=== PATIENT | male | born 1965 | race Caucasian/White ===

== ENCOUNTER 2017-06-27 02:04 | Emergency (ER) | payer BC ==
[2017-06-27] MEDS ORDERED: diphenhydrAMINE 50 MG/ML SDV IVPUSH ONE (02:39)
[2017-06-27] MEDS ORDERED: Sodium Chloride 0.9% 10 ML Syringe FLUSH PRN (02:39)
[2017-06-27] MEDS ORDERED: Prochlorperazine 10 MG/2 ML SDV IVPUSH ONE (02:39)
[2017-06-27] MEDS ORDERED: LORazepam 2 MG/ML MDV IVPUSH ONE (02:39)
--- NOTE | 2017-06-27 02:44 | EDM.PDOC ---
ED HPI GENERAL MEDICAL PROBLEM - General Chief Complaint: Headache Stated Complaint: MIGRAINE Time Seen by Provider: 06/27/17 02:34 Source of Information: Reports: Patient, RN Notes Reviewed History Limitations: Reports: No Limitations - History of Present Illness INITIAL COMMENTS - FREE TEXT/NARRATIVE: 51-year-old gentleman presents emergency department day complaint of migraine headache he states is been going on for several days usually he is able to control this with Imitrex however it did not work today thinks the trigger may be medications of Flagyl and ciprofloxacin he is scheduled for a colonoscopy as well as abscess and drainage of a what he described as an abscess near his: The next 24 hours. He has no fevers nausea vomiting photophobia migraine headache Pain Score (Numeric/FACES): 10 - Related Data Allergies Allergy/AdvReac Type Severity Reaction Status Date / Time No Known Allergies Allergy Verified 06/27/17 02:14 Home Meds: Home Meds ALPRAZolam [Alprazolam] 0.25 mg PO BID 06/27/17 [History] Omeprazole [Omeprazole] 40 mg PO DAILY 06/27/17 [History] SUMAtriptan Succinate [Imitrex] 100 mg PO BID PRN 06/27/17 [History] Past Medical History Gastrointestinal History: Reports: Diverticulosis, Other (See Below) Other Gastrointestinal History: abscess formed from diverticulitis Musculoskeletal History: Reports: Amputation, Fracture, Other (See Below) Other Musculoskeletal History: Left arm fracture Neurological History: Reports: Concussion, Migraines Psychiatric History: Reports: Anxiety - Infectious Disease History Infectious Disease History: Reports: Chicken Pox, MRSA, Other (See Below) Other Infectious Disease History: MRSA right leg - Past Surgical History GI Surgical History: Reports: Other (See Below) Other GI Surgeries/Procedures: abcess drained April 14 2017, 11cm Musculoskeletal Surgical History: Reports: Amputation, Shoulder Surgery, Other ( See Below) Other Musculoskeletal Surgeries/Procedures:: right BK amputation, prothesis Social & Family History - Tobacco Use Smoking Status *Q: Never Smoker - Recreational Drug Use Recreational Drug Use: No ED ROS GENERAL - Review of Systems Review Of Systems: See Below Constitutional: Denies: Fever, Chills HEENT: Reports: Eye Pain Respiratory: Reports: No Symptoms Cardiovascular: Reports: No Symptoms GI/Abdominal: Reports: Nausea. Denies: Abdominal Pain, Vomiting : Reports: No Symptoms Neurological: Reports: Headache - Physical Exam Exam: See Below Exam Limited By: No Limitations General Appearance: Alert, WD/WN, No Apparent Distress Eye Exam: Bilateral Eye: Normal Fundi, Normal Inspection Neck: Normal Inspection, Supple, Non-Tender, Full Range of Motion Respiratory/Chest: No Respiratory Distress, Lungs Clear, Normal Breath Sounds, No Accessory Muscle Use, Chest Non-Tender Cardiovascular: Regular Rate, Rhythm, No Murmur Course - Vital Signs Last Recorded V/S: Last Vital Signs Temp 96.7 F 06/27/17 02:27 Pulse 82 06/27/17 02:27 Resp 18 06/27/17 02:27 BP 136/87 06/27/17 02:27 Pulse Ox 91 L 06/27/17 02:27 - Orders/Labs/Meds Orders: Active Orders 24 hr Category Date Time Status Peripheral IV Care [RC] . DIRECTED Care 06/27/17 02:40 Active Magnesium Sulfate/Water [Magnesium Sulfate 2 GM in Med 06/27/17 04:42 Ordered Water 50 ML] 2 gm Premix Bag 1 bag IV ONETIME Sodium Chloride 0.9% [Normal Saline] 1,000 ml Med 06/27/17 02:45 Active IV ASDIRECTED Sodium Chloride 0.9% [Saline Flush] Med 06/27/17 02:39 Active 10 ml FLUSH ASDIRECTED PRN Valproate Sodium [Depacon] 500 mg Med 06/27/17 04:42 Ordered Sodium Chloride 0.9% [Normal Saline] 50 ml IV ONETIME Peripheral IV Insertion Adult [OM.PC] Urgent Oth 06/27/17 02:39 Ordered Medication Orders Sodium Chloride (Normal Saline) 1,000 mls @ 500 mls/hr IV ASDIRECTED JOHN Last Admin: 06/27/17 02:55 Dose: 500 mls/hr Magnesium Sulfate 2 gm/ Premix 50 mls @ 12.5 mls/hr IV ONETIME ONE Stop: 06/27/17 08:41 Valproic Acid 500 mg/ Sodium (Chloride) 55 mls @ 50 mls/hr IV ONETIME ONE Stop: 06/27/17 05:41 Sodium Chloride (Saline Flush) 10 ml FLUSH ASDIRECTED PRN PRN Reason: Keep Vein Open Last Admin: 06/27/17 02:58 Dose: 10 ml Meds: Medications Generic Name Dose Route Start Last Admin Trade Name Freq PRN Reason Stop Dose Admin Sodium Chloride 1,000 mls @ 500 mls/hr 06/27/17 02:45 06/27/17 02:55 Normal Saline IV 500 mls/hr ASDIRECTED JOHN Administration Magnesium Sulfate 2 gm/ Premix 50 mls @ 12.5 mls/hr 06/27/17 04:42 IV 06/27/17 08:41 ONETIME ONE Valproic Acid 500 mg/ Sodium 55 mls @ 50 mls/hr 06/27/17 04:42 Chloride IV 06/27/17 05:41 ONETIME ONE Sodium Chloride 10 ml 06/27/17 02:39 06/27/17 02:58 Saline Flush FLUSH 10 ml ASDIRECTED PRN Administration Keep Vein Open Discontinued Medications Generic Name Dose Route Start Last Admin Trade Name Freq PRN Reason Stop Dose Admin Dexamethasone 4 mg 06/27/17 03:39 06/27/17 03:51 Dexamethasone IVPUSH 06/27/17 03:40 4 mg ONETIME ONE Administration Diphenhydramine HCl 25 mg 06/27/17 02:39 06/27/17 02:59 Benadryl IVPUSH 06/27/17 02:40 25 mg ONETIME ONE Administration Haloperidol Lactate 5 mg 06/27/17 03:39 06/27/17 03:51 Haldol IVPUSH 06/27/17 03:40 5 mg ONETIME ONE Administration Lorazepam 1 mg 06/27/17 02:39 06/27/17 03:02 Ativan IVPUSH 06/27/17 02:40 1 mg ONETIME ONE Administration Prochlorperazine Edisylate 5 mg 06/27/17 02:39 06/27/17 02:56 Compazine IVPUSH 06/27/17 02:40 5 mg ONETIME ONE Administration Departure - Departure Time of Disposition: 05:10 Disposition: Home, Self-Care 01 Condition: Fair Clinical Impression: Migraine - Discharge Information Referrals: PCP,None [Primary Care Provider] - Forms: ED Department Discharge Additional Instructions: Please followup with your primary care provider in 3-5 days if not better, please call return to the emergency department with worsening of symptoms. - My Orders Last 24 Hours: My Active Orders 06/27/17 02:39 Sodium Chloride 0.9% [Saline Flush] 10 ml FLUSH ASDIRECTED PRN Peripheral IV Insertion Adult [OM.PC] Urgent 06/27/17 02:40 Peripheral IV Care [RC] . DIRECTED 06/27/17 02:45 Sodium Chloride 0.9% [Normal Saline] 1,000 ml IV ASDIRECTED 06/27/17 04:42 Magnesium Sulfate/Water [Magnesium Sulfate 2 GM in Water 50 ML] 2 gm Premix Bag 1 bag IV ONETIME Valproate Sodium [Depacon] 500 mg Sodium Chloride 0.9% [Normal Saline] 50 ml IV ONETIME - Assessment/Plan Last 24 Hours: My Active Orders 06/27/17 02:39 Sodium Chloride 0.9% [Saline Flush] 10 ml FLUSH ASDIRECTED PRN Peripheral IV Insertion Adult [OM.PC] Urgent 06/27/17 02:40 Peripheral IV Care [RC] . DIRECTED 06/27/17 02:45 Sodium Chloride 0.9% [Normal Saline] 1,000 ml IV ASDIRECTED 06/27/17 04:42 Magnesium Sulfate/Water [Magnesium Sulfate 2 GM in Water 50 ML] 2 gm Premix Bag 1 bag IV ONETIME Valproate Sodium [Depacon] 500 mg Sodium Chloride 0.9% [Normal Saline] 50 ml IV ONETIME Plan: Assessment Acuity = acute Site and laterality = migraine headache Etiology = unclear etiology Manifestations = none Location of injury = Home Lab values = none Plan He had improvement with Compazine, Haldol, Benadryl, dexamethasone plan is to discharge home follow-up primary care as needed This note was dictated using [employer] voice recognition software please call with any questions on syntax or supa.
[2017-06-27] MEDS ORDERED: Sodium Chloride 0.9% 1,000 ML IV SCH (02:45)
[2017-06-27] MEDS ORDERED: Dexamethasone 4 MG/ML SDV IVPUSH ONE (03:39)
[2017-06-27] MEDS ORDERED: Haloperidol Lactate 5 MG/ML SDV IVPUSH ONE (03:39)
[2017-06-27] MEDS ORDERED: Magnesium Sulfate/Water 2 GM in Premix Bag 1 BAG IV ONE (04:42)
[2017-06-27] MEDS ORDERED: Magnesium Sulfate/Water 0 ML ONE (05:00)
[2017-06-27] MEDS ORDERED: SUMAtriptan 50 MG Tab PO ONE (05:14)
== END 2017-06-27 05:31 | disposition home or self-care (01) ==
LOC: JP.ED 02:04
DX: G43.909 Migraine, unspecified, not intractable, without status migrainosus (principal); Z79.899 Other long term (current) drug therapy
CPT/HCPCS: 96361; 96374; 96375; 99284; A9270; J0780; J1100; J1200; J1630; J2060; J7040; J7050

== ENCOUNTER 2019-02-24 17:44 | Emergency (ER) | payer BC ==
[2019-02-24] MEDS ORDERED: methylPREDNISolone Sodium Succinate 125 MG/2 ML SDV IM ONE (18:41)
[2019-02-24] MEDS ORDERED: HYDROmorphone 1 MG/ML Syringe IM ONE (18:41)
--- NOTE | 2019-02-24 18:48 | EDM.PDOC ---
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 He is scheduled for some type of nerve ablation next Tuesday. When he gets headaches he typically takes Excedrin migraine which is beneficial, but he was informed not to take any aspirin products prior to his procedure. He developed a right-sided headache 12 hours ago it is persistent. No nausea or vomiting, no visual disturbance. Onset: Sudden Duration: Hour(s): (12 hours) Location: Reports: Head (Right-sided temporal, parietal pain) Quality: Reports: Sharp, Stabbing Associated Symptoms: Reports: No Other Symptoms 10 Pain Score (Numeric/FACES): 1 - Related Data Allergies Allergy/AdvReac Type Severity Reaction Status Date / Time No Known Allergies Allergy Verified 02/24/19 18:17 Home Meds: Home Meds ALPRAZolam [Alprazolam] 0.25 mg PO BID 06/27/17 [History] Omeprazole 40 mg PO DAILY 06/27/17 [History] Acetaminophen/Caffeine [Excedrin Tension Headache] 1 tab PO Q6H PRN 03/25/18 [ History] Past Medical History Gastrointestinal History: Reports: Diverticulosis, Other (See Below) Other Gastrointestinal History: abscess formed from diverticulitis Musculoskeletal History: Reports: Amputation, Fracture, Other (See Below) Other Musculoskeletal History: Left arm fracture Neurological History: Reports: Concussion, Migraines Psychiatric History: Reports: Anxiety - Infectious Disease History Infectious Disease History: Reports: Chicken Pox, MRSA, Other (See Below) Other Infectious Disease History: MRSA right leg - Past Surgical History GI Surgical History: Reports: Other (See Below) Other GI Surgeries/Procedures: abcess drained April 14 2017, 11cm Musculoskeletal Surgical History: Reports: Amputation, Shoulder Surgery, Other ( See Below) Other Musculoskeletal Surgeries/Procedures:: right BK amputation, prothesis Social & Family History - Tobacco Use Smoking Status *Q: Never Smoker - Caffeine Use Caffeine Use: Reports: Coffee ED ROS GENERAL - Review of Systems Review Of Systems: See Below Constitutional: Denies: Fever, Chills HEENT: Denies: Vision Change Respiratory: Denies: Shortness of Breath GI/Abdominal: Denies: Nausea, Vomiting Skin: Denies: Rash Neurological: Reports: Headache - Physical Exam Exam: See Below Exam Limited By: No Limitations General Appearance: Alert, Mild Distress (Fairly uncomfortable) Eye Exam: Bilateral Eye: Normal Inspection Head Exam: Other (Patient has palpation tenderness to the temporal and parietal scalp on the right side.) Neck: Supple Respiratory/Chest: No Respiratory Distress, Lungs Clear Cardiovascular: Regular Rate, Rhythm Neuro Exam (Abbreviated): Alert, Oriented, No Motor/Sensory Deficits Course - Vital Signs Last Recorded V/S: Last Vital Signs Temp 97.5 F 02/24/19 18:24 Pulse 70 02/24/19 18:24 Resp 14 02/24/19 18:24 BP 113/81 02/24/19 18:24 Pulse Ox 94 L 02/24/19 18:24 - Orders/Labs/Meds Meds: Medications Discontinued Medications Generic Name Dose Route Start Last Admin Trade Name Sandra PRN Reason Stop Dose Admin Hydromorphone HCl 1 mg 02/24/19 18:41 02/24/19 18:56 Dilaudid IM 02/24/19 18:42 1 mg ONETIME ONE Administration Methylprednisolone Sodium Succinate 125 mg 02/24/19 18:41 02/24/19 18:56 Solu-Medrol IM 02/24/19 18:42 125 mg ONETIME ONE Administration - Re-Assessments/Exams Free Text/Narrative Re-Assessment/Exam: 02/24/19 18:45 This headache presents more of a neuropathic source than migraine source. He was given 1 mg of IM Dilaudid and 125 mg of IM Solu-Medrol. He is going to rest tonight, return if not improving satisfactorily otherwise keep his appointment for his procedure on Tuesday as scheduled. 02/24/19 19:20 Patient felt much better after the injections, his headache had actually resolved. Departure - Departure Time of Disposition: 19:42 Disposition: Home, Self-Care 01 Clinical Impression: Temporal headache - Discharge Information Instructions: Neuropathic Pain Referrals: PCP,None [Primary Care Provider] - Forms: ED Department Discharge Care Plan Goals: Rest tonight, return if worsening prior to your procedure. Otherwise keep your appointment on Tuesday as scheduled.
== END 2019-02-24 19:40 | disposition home or self-care (01) ==
LOC: JP.ED 17:44
DX: R51 Headache (principal); F41.9 Anxiety disorder, unspecified; Z79.899 Other long term (current) drug therapy
CPT/HCPCS: 96372; 99283; J1170; J2930

== ENCOUNTER 2020-02-29 14:33 | Emergency (ER) | payer BC ==
--- NOTE | 2020-02-29 15:24 | EDM.PDOC ---
<Melania Mirza M - Last Filed: 02/29/20 15:17> ED HPI GENERAL MEDICAL PROBLEM - General Chief Complaint: General Stated Complaint: COVID SYMPTOMS Time Seen by Provider: 02/29/20 15:17 Source of Information: Reports: Patient, RN, RN Notes Reviewed History Limitations: Reports: No Limitations - History of Present Illness INITIAL COMMENTS - FREE TEXT/NARRATIVE: Pt here for COVID testing after many hours of trying to have it done at drive through or walk in. Pt feels symptomatic with aches, fatigue, nausea, weakness, and overall low energy. Pt denies SOB, fever, chills, night sweats, or pain. - Related Data Allergies Allergy/AdvReac Type Severity Reaction Status Date / Time No Known Allergies Allergy Verified 02/29/20 14:47 Home Meds: Home Meds ALPRAZolam [Alprazolam] 0.25 mg PO BID 06/27/17 [History] Omeprazole 40 mg PO DAILY 06/27/17 [History] Acetaminophen/Caffeine [Excedrin Tension Headache] 1 tab PO Q6H PRN 03/25/18 [History] Celecoxib [CeleBREX] 200 mg PO BID 09/19/19 [History] Pregabalin [Lyrica] 75 mg PO TID 09/19/19 [History] FLUoxetine HCl [Prozac] 20 mg PO DAILY 01/30/20 [History] Past Medical History Gastrointestinal History: Reports: Diverticulosis, Other (See Below) Other Gastrointestinal History: abscess formed from diverticulitis Musculoskeletal History: Reports: Amputation, Fracture, Other (See Below) Other Musculoskeletal History: Left arm fracture Neurological History: Reports: Concussion, Migraines Psychiatric History: Reports: Anxiety - Infectious Disease History Infectious Disease History: Reports: Chicken Pox, MRSA, Other (See Below) Other Infectious Disease History: MRSA right leg - Past Surgical History GI Surgical History: Reports: Other (See Below) Other GI Surgeries/Procedures: abcess drained April 14 2017, 11cm Musculoskeletal Surgical History: Reports: Amputation, Shoulder Surgery, Other (See Below) Other Musculoskeletal Surgeries/Procedures:: right BK amputation, prothesis Social & Family History - Tobacco Use Tobacco Use Status *Q: Never Tobacco User - Caffeine Use Caffeine Use: Reports: Coffee ED ROS GENERAL - Review of Systems Review Of Systems: See Below Constitutional: Reports: No Symptoms HEENT: Reports: No Symptoms Respiratory: Reports: Cough Cardiovascular: Reports: No Symptoms Endocrine: Reports: No Symptoms GI/Abdominal: Reports: Nausea : Reports: No Symptoms Musculoskeletal: Reports: Other (generalized aches) Skin: Reports: No Symptoms Neurological: Reports: No Symptoms Psychiatric: Reports: No Symptoms Hematologic/Lymphatic: Reports: No Symptoms Immunologic: Reports: No Symptoms ED EXAM, GENERAL - Physical Exam Exam: See Below Exam Limited By: No Limitations General Appearance: Alert, WD/WN, No Apparent Distress Head: Normocephalic Neck: Normal Inspection, Full Range of Motion Respiratory/Chest: Lungs Clear, Normal Breath Sounds Cardiovascular: Regular Rate, Rhythm (Male) Exam: Deferred Rectal (Males) Exam: Deferred Neurological: Alert, Oriented Psychiatric: Normal Affect Skin Exam: Warm, Dry Departure - Departure Time of Disposition: 15:21 Disposition: Home, Self-Care 01 Condition: Good Clinical Impression: Cough - Discharge Information *PRESCRIPTION DRUG MONITORING PROGRAM REVIEWED*: Not Applicable *COPY OF PRESCRIPTION DRUG MONITORING REPORT IN PATIENT TITI: Not Applicable Instructions: Cough, Adult, [id number] Referrals: PCP,None [Primary Care Provider] - Forms: ED Department Discharge Care Plan Goals: Please self quarantine until the results of COVID are given. You may use over the counter preparations for symptom control such as DayQuil, Nightquil, Tylenol, or Ibuprofen. Allow for plenty of fluids and well balanced meals. Get plenty of rest. If the symptoms get worse, please see your primary provider or come back to the ER. Sepsis Event Note (ED) - Evaluation Sepsis Screening Result: No Definite Risk - Problem List & Annotations (1) Cough SNOMED Code(s): 85574406 Code(s): R05 - COUGH Status: Acute Priority: High - Assessment/Plan Plan: Please self quarantine until the results of COVID are given. You may use over the counter preparations for symptom control such as DayQuil, Nightquil, Tylenol, or Ibuprofen. Allow for plenty of fluids and well balanced meals. Get plenty of rest. If the symptoms get worse, please see your primary provider or come back to the ER. <Felice Rowe - Last Filed: 02/29/20 17:51> Course - Vital Signs Last Recorded V/S: Last Vital Signs Temp 98.5 F 02/29/20 14:47 Pulse 97 02/29/20 14:47 Resp 18 02/29/20 14:47 BP 150/108 H 02/29/20 14:47 Pulse Ox 95 02/29/20 14:47 - Orders/Labs/Meds Orders: Active Orders 24 hr Category Date Time Status CORONAVIRUS COVID-19, BLAIR Routine Lab 02/29/20 15:40 Received - Re-Assessments/Exams Free Text/Narrative Re-Assessment/Exam: 02/29/20 15:27 54-year-old male comes in wanting to be tested for call right after being exposed to several other people that had a history of having the virus that did not have masks out. He started with weakness, diarrhea, and then slept for 12 straight hours and still has some nausea. Today slight shortness of breath. See above history and physical, I agree with assessment. A COVID was done and the patient will be quarantined for the weekend until test results are available. Sepsis Event Note (ED) - Focused Exam Vital Signs: Vital Signs Temp Pulse Resp BP Pulse Ox 02/29/20 14:47 98.5 F 97 18 150/108 H 95 Attestation - Student - Attestation Statement Attestation Statement: I personally performed or re-performed the physical examination and medical decision making. I have verified all student documentation or findings, including history, physical exam and/or medical decision making.
== END 2020-02-29 15:45 | disposition home or self-care (01) ==
LOC: JP.ED 14:33
DX: R05 Cough (principal); F41.9 Anxiety disorder, unspecified; Z79.899 Other long term (current) drug therapy; Z20.828 Contact with and (suspected) exposure to other viral communicable diseases
CPT/HCPCS: 99283; U0002

== ENCOUNTER 2020-05-31 21:45 | Emergency (ER) | payer BC ==
[2020-05-31] MEDS ORDERED: Sodium Chloride 0.9% 10 ML Syringe FLUSH PRN ×2 (22:16→23:51)
[2020-05-31] MEDS ORDERED: Dexamethasone 4 MG/ML SDV IVPUSH ONE (22:16)
[2020-05-31] MEDS ORDERED: Prochlorperazine 10 MG/2 ML SDV IVPUSH ONE (22:16)
[2020-05-31] MEDS ORDERED: Ketorolac 30 MG/ML SDV IVPUSH ONE (22:16)
[2020-05-31] MEDS ORDERED: diphenhydrAMINE 50 MG/ML SDV IVPUSH ONE (22:16)
[2020-05-31] MEDS ORDERED: Sodium Chloride 0.9% 1,000 ML IV ONE (22:22)
--- NOTE | 2020-05-31 22:51 | EDM.PDOC ---
ED HPI GENERAL MEDICAL PROBLEM - General Chief Complaint: General Stated Complaint: SOLID HEADACHES Time Seen by Provider: 05/31/20 22:14 Source of Information: Reports: Patient, Old Records History Limitations: Reports: No Limitations - History of Present Illness INITIAL COMMENTS - FREE TEXT/NARRATIVE: Rubén is a 54-year-old male presenting to the ED for multiple complaints that are worrisome for COVID-19. The patient works in the office selling insurance and has likely coming to contact with others with COVID-19. He is fairly diligent about wearing a mask and social distancing. He has a history significant for recurrent migraine headaches and bilateral trapezius spasms. He frequently gets trigger point injections here with anesthesia. He recently had trigger point injections in his bilateral trapezius muscles which does seem to reduce the frequency of his headaches. Yesterday started develop a severe right-sided headache in the right quaker area associated with some nausea. Over the course of the last 24 hours the headache is become more global but what is worrisome as he also has had a sore throat for the last couple of days that has been intermittent and worsening progressive dyspnea. He has had an intermittent cough. Denies any smoking. He is denied any fever but has had chills. He has generalized body aches. He says the headache he has which is now severe is different than his typical migraines. Reports that his migraines have been pretty well controlled with his Aimovig that he uses daily. He denies any loss of taste or smell. His appetite has been normal. The dyspnea has been much more noticeable today. - Related Data Allergies Allergy/AdvReac Type Severity Reaction Status Date / Time No Known Allergies Allergy Verified 05/31/20 22:12 Home Meds: Home Meds ALPRAZolam [Alprazolam] 0.25 mg PO BID 06/27/17 [History] Omeprazole 40 mg PO DAILY 06/27/17 [History] Pregabalin [Lyrica] 75 mg PO TID 09/19/19 [History] Apixaban [Eliquis] 5 mg PO BID #60 tablet 06/01/20 [Rx] Past Medical History Gastrointestinal History: Reports: Diverticulosis, Other (See Below) Other Gastrointestinal History: abscess formed from diverticulitis Musculoskeletal History: Reports: Amputation, Fracture, Other (See Below) Other Musculoskeletal History: Left arm fracture Neurological History: Reports: Concussion, Migraines Psychiatric History: Reports: Anxiety - Infectious Disease History Infectious Disease History: Reports: Chicken Pox, MRSA, Other (See Below) Other Infectious Disease History: MRSA right leg - Past Surgical History GI Surgical History: Reports: Other (See Below) Other GI Surgeries/Procedures: abcess drained April 14 2017, 11cm Musculoskeletal Surgical History: Reports: Amputation, Shoulder Surgery, Other (See Below) Other Musculoskeletal Surgeries/Procedures:: right BK amputation, prothesis Social & Family History - Caffeine Use Caffeine Use: Reports: Coffee ED ROS GENERAL - Review of Systems Review Of Systems: See Below Constitutional: Reports: Chills, Malaise HEENT: Reports: Throat Pain Respiratory: Reports: Shortness of Breath, Cough. Denies: Sputum Cardiovascular: Reports: No Symptoms Endocrine: Reports: No Symptoms GI/Abdominal: Reports: Nausea. Denies: Diarrhea : Reports: No Symptoms Musculoskeletal: Reports: Muscle Pain Skin: Reports: No Symptoms Neurological: Reports: Headache Psychiatric: Reports: No Symptoms Hematologic/Lymphatic: Reports: No Symptoms Immunologic: Reports: No Symptoms ED EXAM, GENERAL - Physical Exam Exam: See Below Exam Limited By: No Limitations General Appearance: Alert, WD/WN, No Apparent Distress, Mild Distress Eye Exam: Bilateral Eye: EOMI, PERRL Ears: Normal External Exam, Normal Canal, Normal TMs Nose: Normal Inspection, Normal Mucosa Throat/Mouth: Normal Lips, Normal Voice, No Airway Compromise, Other (Erythema of the retropharynx with mild swelling. There are no tonsillar exudates.) Head: Atraumatic, Normocephalic Neck: Normal Inspection, Supple, Full Range of Motion, Lymphadenopathy (L) (Left submental and anterior cervical chain adenopathy) Respiratory/Chest: No Respiratory Distress, Lungs Clear, Normal Breath Sounds, No Accessory Muscle Use, Chest Non-Tender Cardiovascular: Normal Peripheral Pulses, Regular Rate, Rhythm, No JVD, No Murmur Peripheral Pulses: 2+: Radial (L), Radial (R) GI/Abdominal: Normal Bowel Sounds, Soft, Non-Tender Extremities: Normal Inspection, Normal Range of Motion, Non-Tender, No Pedal Edema Neurological: Alert, Oriented, CN II-XII Intact, Normal Cognition, No Motor/Sensory Deficits Psychiatric: Normal Affect, Normal Mood Skin Exam: Warm, Dry, Intact, Normal Color Lymphatic: Adenopathy (Left submental and anterior cervical chain adenopathy.) Course - Vital Signs Last Recorded V/S: Last Vital Signs Temp 36.9 C 05/31/20 22:07 Pulse 105 H 05/31/20 22:07 Resp 16 05/31/20 22:07 BP 127/84 05/31/20 22:07 Pulse Ox 95 05/31/20 22:07 - Orders/Labs/Meds Orders: Active Orders 24 hr Category Date Time Status Chest 1V Frontal [CR] Stat Exams 05/31/20 22:15 Taken Iopamidol [Isovue-370 (76%)] Med 05/31/20 23:45 Active 85 ml IV . DIRECTED Sodium Chloride 0.9% [Saline Flush] Med 05/31/20 22:16 Active 10 ml FLUSH ASDIRECTED PRN Sodium Chloride 0.9% [Saline Flush] Med 05/31/20 23:51 Active 10 ml FLUSH ONETIME PRN Saline Lock Insert [OM.PC] Routine Oth 05/31/20 22:16 Ordered Medication Orders Iopamidol (Isovue-370 (76%)) 85 ml IV . DIRECTED [facility] Last Admin: 06/01/20 00:11 Dose: 85 ml Documented by: MILES Sodium Chloride (Saline Flush) 10 ml FLUSH ASDIRECTED PRN PRN Reason: Keep Vein Open Sodium Chloride (Saline Flush) 10 ml FLUSH ONETIME PRN PRN Reason: PER RADIOLOGY PROTOCOL Last Admin: 06/01/20 00:11 Dose: 10 ml Documented by: MILES Labs: Laboratory Tests 05/31/20 05/31/20 05/31/20 Range/Units 22:02 22:27 22:27 WBC 8.5 (4.5-11.0) K/uL RBC 4.12 L (4.30-5.90) M/uL Hgb 12.7 (12.0-15.0) g/dL Hct 38.8 L (40.0-54.0) % MCV 94 (80-98) fL MCH 31 (27-31) pg MCHC 33 (32-36) % Plt Count 255 (150-400) K/uL Neut % (Auto) 62 (36-66) % Lymph % (Auto) 21 L (24-44) % Dupage % (Auto) 11 H (2-6) % Eos % (Auto) 6 H (2-4) % Baso % (Auto) 0 (0-1) % D-Dimer, Quantitative 817.17 H (0.0-500.0) ng/mL Sodium (140-148) mmol/L Potassium (3.6-5.2) mmol/L Chloride (100-108) mmol/L Carbon Dioxide (21-32) mmol/L Anion Gap (5.0-14.0) mmol/L BUN (7-18) mg/dL Creatinine (0.8-1.3) mg/dL Est Cr Clr Drug Dosing mL/min Estimated GFR (MDRD) (>60) Glucose (74-106) mg/dL Calcium (8.5-10.1) mg/dL Total Bilirubin (0.2-1.0) mg/dL AST (15-37) U/L ALT (12-78) U/L Alkaline Phosphatase (46-116) U/L C-Reactive Protein (0.0-0.3) mg/dL Total Protein (6.4-8.2) g/dL Albumin (3.4-5.0) g/dL Globulin (2.3-3.5) g/dL Albumin/Globulin Ratio (1.2-2.2) Influenza Type A RNA Negflua (NEGATIVE) RSV RNA (INAAT) Negative (NEGATIVE) Influenza Type B RNA Negflub (NEGATIVE) SARS-CoV-2 RNA (BLAIR) Negative (NEGATIVE) 05/31/20 Range/Units 22:27 WBC (4.5-11.0) K/uL RBC (4.30-5.90) M/uL Hgb (12.0-15.0) g/dL Hct (40.0-54.0) % MCV (80-98) fL MCH (27-31) pg MCHC (32-36) % Plt Count (150-400) K/uL Neut % (Auto) (36-66) % Lymph % (Auto) (24-44) % Dupage % (Auto) (2-6) % Eos % (Auto) (2-4) % Baso % (Auto) (0-1) % D-Dimer, Quantitative (0.0-500.0) ng/mL Sodium 140 (140-148) mmol/L Potassium 3.7 (3.6-5.2) mmol/L Chloride 105 (100-108) mmol/L Carbon Dioxide 25 (21-32) mmol/L Anion Gap 9.9 (5.0-14.0) mmol/L BUN 11 (7-18) mg/dL Creatinine 1.1 (0.8-1.3) mg/dL Est Cr Clr Drug Dosing 86.22 mL/min Estimated GFR (MDRD) > 60 (>60) Glucose 234 H (74-106) mg/dL Calcium 8.5 (8.5-10.1) mg/dL Total Bilirubin 0.3 (0.2-1.0) mg/dL AST 21 (15-37) U/L ALT 44 (12-78) U/L Alkaline Phosphatase 82 (46-116) U/L C-Reactive Protein 1.75 H (0.0-0.3) mg/dL Total Protein 6.2 L (6.4-8.2) g/dL Albumin 2.9 L (3.4-5.0) g/dL Globulin 3.3 (2.3-3.5) g/dL Albumin/Globulin Ratio 0.9 L (1.2-2.2) Influenza Type A RNA (NEGATIVE) RSV RNA (INAAT) (NEGATIVE) Influenza Type B RNA (NEGATIVE) SARS-CoV-2 RNA (BLAIR) (NEGATIVE) Meds: Medications Generic Name Dose Route Start Last Admin Trade Name Freq PRN Reason Stop Dose Admin Iopamidol 85 ml 05/31/20 23:45 06/01/20 00:11 Isovue-370 (76%) IV 85 ml . DIRECTED JOHN Administration Sodium Chloride 10 ml 05/31/20 22:16 Saline Flush FLUSH ASDIRECTED PRN Keep Vein Open Sodium Chloride 10 ml 05/31/20 23:51 06/01/20 00:11 Saline Flush FLUSH 10 ml ONETIME PRN Administration PER RADIOLOGY PROTOCOL Discontinued Medications Generic Name Dose Route Start Last Admin Trade Name Freq PRN Reason Stop Dose Admin Dexamethasone 6 mg 05/31/20 22:16 05/31/20 22:23 Decadron IVPUSH 05/31/20 22:17 6 mg ONETIME ONE Administration Diphenhydramine HCl 50 mg 05/31/20 22:16 05/31/20 22:28 Benadryl IVPUSH 05/31/20 22:17 50 mg ONETIME ONE Administration Sodium Chloride 1,000 mls @ 999 mls/hr 05/31/20 22:22 05/31/20 22:32 Normal Saline IV 05/31/20 23:22 999 mls/hr .BOLUS ONE Administration Sodium Chloride 90 mls @ 3 mls/sec 05/31/20 23:51 06/01/20 00:11 Normal Saline IV 05/31/20 23:52 3 mls/sec ONETIME ONE Administration Ketorolac Tromethamine 30 mg 05/31/20 22:16 05/31/20 22:26 Toradol IVPUSH 05/31/20 22:17 30 mg ONETIME ONE Administration Prochlorperazine Edisylate 10 mg 05/31/20 22:16 05/31/20 22:24 Compazine IVPUSH 05/31/20 22:17 10 mg ONETIME ONE Administration - Radiology Interpretation Free Text/Narrative:: Portable 1 view chest x-ray is obtained showing normal cardiothoracic anatomy. There is no evidence for acute infiltrates or hilar adenopathy. There is normal cardiac silhouette and mediastinum structures. Normal diaphragm. No previous x-rays to compare. CT angiogram of the chest shows a small segmental occlusion in the left pulmonary tree consistent with an acute pulmonary embolism. - Re-Assessments/Exams Free Text/Narrative Re-Assessment/Exam: 06/01/20 01:05 the patient was treated for migraine headache with a liter of IV normal saline, Toradol 30 mg IV, dexamethasone 6 mg IV, diphenhydramine 50 mg IV, and Compazine 10 mg IV with marked improvement in his symptoms. He underwent lab testing for possible Covid 19, however, the test was negative for Vika COVID-19 but also influenza, and RSV. The patient had a CBC which was unremarkable. His D-dimer was markedly elevated and his C-reactive protein was mildly elevated. Because of the marked elevation of the D-dimer and the negative COVID-19 test we proceeded with a CT angiogram of the chest showing a single subsegmental thrombus in the left pulmonary tree. We will start the patient on Eliquis 5 mg twice daily to treat this. The patient will need to follow-up with his primary care provider to manage his pulmonary embolism long- term. At this time he suitable for discharge home. Indications return to the ED were discussed and all questions were answered prior to discharge. Departure - Departure Time of Disposition: 01:00 Disposition: Home, Self-Care 01 Condition: Good Clinical Impression: Shortness of breath at rest Pulmonary embolism Qualifiers: Pulmonary embolism type: single subsegmental (without acute cor pulmonale) Qualified Code(s): I26.93 - Single subsegmental pulmonary embolism without acute cor pulmonale Migraine headache Qualifiers: Migraine type: unspecified Status migrainosus presence: without status migrainosus Intractability: intractable Qualified Code(s): G43.919 - Migraine, unspecified, intractable, without status migrainosus - Discharge Information *PRESCRIPTION DRUG MONITORING PROGRAM REVIEWED*: Not Applicable *COPY OF PRESCRIPTION DRUG MONITORING REPORT IN PATIENT TITI: Not Applicable Instructions: Migraine Headache, [id number], Pulmonary Embolism, Shortness of Breath, Adult Referrals: Javier Caro MD [Primary Care Provider] - Forms: ED Department Discharge Care Plan Goals: It appears that she had a small blood clot to one of the segments of your left upper lung. In order to prevent this from expanding or for further clots to form, we are starting you on a blood thinner called Eliquis. You'll be taking 5 mg twice daily from this point forward. Recommend follow-up with your primary care physician early next week to discuss any additional management. Sepsis Event Note (ED) - Evaluation Sepsis Screening Result: No Definite Risk - Focused Exam Vital Signs: Vital Signs Temp Pulse Resp BP Pulse Ox 05/31/20 22:07 36.9 C 105 H 16 127/84 95 - Problem List & Annotations (1) Migraine headache SNOMED Code(s): 84918246 Code(s): G43.909 - MIGRAINE, UNSP, NOT INTRACTABLE, WITHOUT STATUS MIGRAINOSUS Status: Acute Priority: High Current Visit: Yes Qualifiers: Migraine type: unspecified Status migrainosus presence: without status migrainosus Intractability: intractable Qualified Code(s): G43.919 - Migraine, unspecified, intractable, without status migrainosus (2) Pulmonary embolism SNOMED Code(s): 46760406 Code(s): I26.99 - OTHER PULMONARY EMBOLISM WITHOUT ACUTE COR PULMONALE Status: Acute Priority: High Current Visit: Yes Qualifiers: Pulmonary embolism type: single subsegmental (without acute cor pulmonale) Qualified Code(s): I26.93 - Single subsegmental pulmonary embolism without acute cor pulmonale (3) Shortness of breath at rest SNOMED Code(s): 668351006 Code(s): R06.02 - SHORTNESS OF BREATH Status: Acute Priority: High Current Visit: Yes - Problem List Review Problem List Initiated/Reviewed/Updated: Yes - My Orders Last 24 Hours: My Active Orders 05/31/20 22:15 Chest 1V Frontal [CR] Stat 05/31/20 22:16 Sodium Chloride 0.9% [Saline Flush] 10 ml FLUSH ASDIRECTED PRN Saline Lock Insert [OM.PC] Routine 05/31/20 23:45 Iopamidol [Isovue-370 (76%)] 85 ml IV . DIRECTED 05/31/20 23:51 Sodium Chloride 0.9% [Saline Flush] 10 ml FLUSH ONETIME PRN - Assessment/Plan Last 24 Hours: My Active Orders 05/31/20 22:15 Chest 1V Frontal [CR] Stat 05/31/20 22:16 Sodium Chloride 0.9% [Saline Flush] 10 ml FLUSH ASDIRECTED PRN Saline Lock Insert [OM.PC] Routine 05/31/20 23:45 Iopamidol [Isovue-370 (76%)] 85 ml IV . DIRECTED 05/31/20 23:51 Sodium Chloride 0.9% [Saline Flush] 10 ml FLUSH ONETIME PRN
[2020-05-31 23:43] LABS: CORONAVIRUS COVID-19 NAA NEGATIVE (NEGATIVE)
[2020-05-31] MEDS ORDERED: Iopamidol 755 Mg/ML 100 ML Bottle IV SCH (23:45)
[2020-05-31] MEDS ORDERED: Sodium Chloride 0.9% 90 ML IV ONE (23:51)
--- NOTE | 2020-06-01 00:55 | CRLCT ---
INDICATION: Acute dyspnea, elevated D-dimer TECHNIQUE: Contrast enhanced axial CT imaging through the chest, optimized for assessment of the pulmonary arterial tree. 85 mL Isovue 370 contrast agent was administered intravenously. Sagittal and coronal reconstructions are provided. COMPARISON: None FINDINGS: There is adequate opacification of the pulmonary arterial tree. A small filling defect is suggested involving an apical subsegmental branch of the left upper lobe pulmonary artery (series 2, image 40), possibly presenting a small occlusive thrombus. Remainder of the pulmonary arterial tree is patent. The main pulmonary artery is nonenlarged. The heart is normal in size. RV:LV ratio is 0.8, normal. There is no pericardial effusion. The thoracic aorta is normal in caliber. There is no mediastinal lymphadenopathy. There is mild bilateral dependent lung atelectasis. The lungs are otherwise clear. There is no pleural effusion or pneumothorax. The thoracic osseous structures are unremarkable. No significant abnormality is demonstrated in the visualized upper abdomen. IMPRESSION: Questionable small nonocclusive embolus within a subsegmental pulmonary artery branch in the apical left upper lobe. Remainder of the pulmonary arterial tree is patent. No evidence for right heart strain. Please note that all CT scans at this facility use dose modulation, iterative reconstruction, and/or weight-based dosing when appropriate to reduce radiation dose to as low as reasonably achievable. Dictated by Grady Fernando MD @ Jun 01 2020 12:43AM Signed by Dr. Grady Fernando @ Jun 01 2020 12:54AM
[2020-06-01] MEDS ORDERED: Apixaban 5 MG Tab PO ONE (01:03)
--- NOTE | 2020-06-02 09:40 | CR ---
CHEST: Portable 05/31/2020 at 11:00 PM CLINICAL HISTORY:Dyspnea COMPARISON:None FINDINGS: The heart size, pulmonary vascularity and hilar structures are normal. No infiltrate effusion or pneumothorax is seen. IMPRESSION: No acute cardiopulmonary process.
== END 2020-06-01 02:20 | disposition home or self-care (01) ==
LOC: JP.ED 21:45
DX: G43.919 Migraine, unspecified, intractable, without status migrainosus (principal); I26.93 Single subsegmental thrombotic pulmonary embolism without acute cor pulmonale; Z20.822 Contact with and (suspected) exposure to COVID-19; Z79.01 Long term (current) use of anticoagulants
CPT/HCPCS: 0241U; 36415; 71045; 71045-26; 71275; 80053; 85025; 85379; 86140; 96374; 96375; 99285; 99285-25; A9270-GY; J0780; J1100; J1200; J1885; J7030; Q9967

== ENCOUNTER 2021-12-07 20:45 | Emergency (ER) | payer BC ==
[2021-12-07] MEDS ORDERED: Bacitracin Oint 1 GM U/D Packet TOP ONE (22:37)
[2021-12-07] MEDS ORDERED: Lidocaine 1% 5 ML VIAL INJECT ONE (22:37)
== END 2021-12-07 23:31 | disposition home or self-care (01) ==
LOC: JP.ED 20:45
DX: S61.011A Laceration without foreign body of right thumb without damage to nail, initial encounter (principal); E78.00 Pure hypercholesterolemia, unspecified; E11.9 Type 2 diabetes mellitus without complications; Z79.899 Other long term (current) drug therapy; Z79.84 Long term (current) use of oral hypoglycemic drugs; W29.0XXA Contact with powered kitchen appliance, initial encounter
CPT/HCPCS: 12001; 99281; 99282

== ENCOUNTER 2022-11-07 19:42 | Emergency (ER) | payer BC ==
[2022-11-07] MEDS ORDERED: Sodium Chloride 0.9% 10 ML Syringe FLUSH PRN (19:50)
[2022-11-07 19:57] LABS: BASOPHILS ABSOLUTE AUTO 0.04 K/uL (0.00-0.10); BASOPHILS PERCENT AUTO 0.3 % (0.1-1.3); EOSINOPHILS ABSOLUTE AUTO 0.24 K/uL (0.00-0.40); EOSINOPHILS PERCENT AUTO 1.8 % (0.0-5.4); HEMATOCRIT 42.5 % (38.4-49.7); HEMOGLOBIN 14.9 g/dL (12.9-16.9); IMMATURE GRAN ABSOLUTE AUTO 0.06 K/uL (0.00-0.23); IMMATURE GRAN PERCENT AUTO 0.4 % (0.0-0.7); LYMPHOCYTES PERCENT AUTO 23.4 % (11.4-47.7); MEAN CORPUSCULAR HGB CONC 35.1 g/dL (31.6-35.5); MEAN CORPUSCULAR VOLUME 88.4 fL (81.4-99.0); MONOCYTES ABSOLUTE AUTO 1.03 K/uL (0.20-0.90); MONOCYTES PERCENT AUTO 7.5 % (3.3-12.6); NEUTROPHILS ABSOLUTE AUTO 9.13 K/uL (1.0-7.6); NEUTROPHILS PERCENT AUTO 66.6 % (40.0-78.1); PLATELET COUNT,PLT 261 K/uL (130-375); RED BLOOD CELL COUNT 4.81 M/uL (4.14-5.76); WHITE BLOOD CELL COUNT,WBC 13.7 K/uL (3.2-11.0)
[2022-11-07 20:20] LABS: BASE EXCESS ARTERIAL 1.8 mm/L; BICARBONATE,ARTERIAL 25.1 mmol/L (22.0-26.0); CARBOXYHEMOGLOBIN 1.4 % (0.0-1.6); METHEMOGLOBIN 0.9 %; O2 SATURATION ARTERIAL 95.2 % (95.0-98.0); PCO2 ARTERIAL 36.3 mmHg (35.0-42.0); PO2 ARTERIAL 77.8 mmHg (75.0-100.0); TOTAL HEMOGLOBIN 14.5 g/dL (13.5-18.0)
[2022-11-07 20:23] LABS: A/G RATIO 1.2 (1.2-2.2); ALANINE AMINOTRANSFERASE,ALT 41 U/L (12-78); ALBUMIN 3.8 g/dL (3.4-5.0); ALKALINE PHOSPHATASE 86 U/L (46-116); ASPARTATE AMNIOTRANSFERASE,AST 31 U/L (15-37); BILIRUBIN TOTAL 0.7 mg/dL (0.2-1.0); BLOOD UREA NITROGEN,BUN 15 mg/dL (7-18); C-REACTIVE PROTEIN 0.29 mg/dL (0.0-0.3); CALCIUM 8.6 mg/dL (8.5-10.1); CARBON DIOXIDE,CO2 27 mmol/L (21-32); CHLORIDE,CL 102 mmol/L (100-108); CREATININE 1.1 mg/dL (0.8-1.3); ESTIMATED GFR 79 mL/min (>60); GLUCOSE RANDOM 116 mg/dL (74-106); MAGNESIUM 1.8 mg/dL (1.8-2.4); PROTEIN TOTAL,TP 7.1 g/dL (6.4-8.2); SODIUM,NA 140 mmol/L (140-148); TROPONIN I HIGH SENSITIVITY 8.9 pg/mL (<=60.3); TSH ULTRASENSITIVE 3.685 uIU/mL (0.358-3.740)
[2022-11-07 20:24] LABS: ANION GAP 13.9 mmol/L (5.0-14.0); POTASSIUM,K 2.9 mmol/L (3.6-5.2)
[2022-11-07] MEDS ORDERED: Potassium Chloride 20 MEQ Tab.ER PO ONE (20:27)
== END 2022-11-07 21:56 | disposition home or self-care (01) ==
LOC: JP.ED 19:42
DX: F45.8 Other somatoform disorders (principal); E86.0 Dehydration; R41.2 Retrograde amnesia; E87.6 Hypokalemia; E78.00 Pure hypercholesterolemia, unspecified; E11.9 Type 2 diabetes mellitus without complications; Z79.84 Long term (current) use of oral hypoglycemic drugs; Z79.899 Other long term (current) drug therapy
CPT/HCPCS: 36415; 36600; 70450; 80053; 82803; 83735; 84443; 84484; 85025; 85379; 86140; 93005; 99285; A9270

== ENCOUNTER 2024-01-15 13:51 | Emergency (ER) | payer BC ==
[2024-01-15] MEDS: Lidocaine/Epineph/Tetracaine 3 ML Syringe TOP ONE (15:19)
== END 2024-01-15 17:14 | disposition home or self-care (01) ==
LOC: JP.ED 13:51
DX: S61.216A Laceration without foreign body of right little finger without damage to nail, initial encounter (principal); E78.00 Pure hypercholesterolemia, unspecified; E11.9 Type 2 diabetes mellitus without complications; Z79.899 Other long term (current) drug therapy; Z79.84 Long term (current) use of oral hypoglycemic drugs; W26.8XXA Contact with other sharp object(s), not elsewhere classified, initial encounter
CPT/HCPCS: 12001; 99282; A9270

== ENCOUNTER 2024-06-02 12:40 | Emergency (ER) | payer BC ==
[2024-06-02 14:01] LABS: BASOPHILS PERCENT AUTO 0.2 % (0.1-1.3); EOSINOPHILS ABSOLUTE AUTO 0.42 K/uL (0.00-0.40); EOSINOPHILS PERCENT AUTO 3.2 % (0.0-5.4); HEMATOCRIT 41.4 % (38.4-49.7); HEMOGLOBIN 14.2 g/dL (12.9-16.9); IMMATURE GRAN ABSOLUTE AUTO 0.05 K/uL (0.00-0.23); IMMATURE GRAN PERCENT AUTO 0.4 % (0.0-0.7); LYMPHOCYTES ABSOLUTE AUTO 2.08 K/uL (0.8-3.3); LYMPHOCYTES PERCENT AUTO 15.8 % (11.4-47.7); MEAN CORPUSCULAR HEMOGLOBIN 31.2 pg (31.6-35.5); MEAN CORPUSCULAR HGB CONC 34.3 g/dL (31.6-35.5); MONOCYTES ABSOLUTE AUTO 1.37 K/uL (0.20-0.90); MONOCYTES PERCENT AUTO 10.4 % (3.3-12.6); NEUTROPHILS ABSOLUTE AUTO 9.26 K/uL (1.0-7.6); PLATELET COUNT,PLT 189 K/uL (130-375); RED BLOOD CELL COUNT 4.55 M/uL (4.14-5.76); WHITE BLOOD CELL COUNT,WBC 13.2 K/uL (3.2-11.0)
[2024-06-02 14:17] LABS: BASOPHILS ABSOLUTE AUTO 0.02 K/uL (0.00-0.10)
[2024-06-02 14:25] LABS: A/G RATIO 0.7 (1.2-2.2); ALANINE AMINOTRANSFERASE,ALT 72 U/L (12-78); ALKALINE PHOSPHATASE 97 U/L (46-116); ANION GAP 10.6 mmol/L (5.0-14.0); ASPARTATE AMNIOTRANSFERASE,AST 23 U/L (15-37); BILIRUBIN TOTAL 0.5 mg/dL (0.2-1.0); BLOOD UREA NITROGEN,BUN 18 mg/dL (7-18); CALCIUM 8.9 mg/dL (8.5-10.1); CARBON DIOXIDE,CO2 27 mmol/L (21-32); CHLORIDE,CL 102 mmol/L (100-108); CREATININE 1.1 mg/dL (0.8-1.3); EST CRCL DRUG DOSING (CG) 84.74 mL/min; ESTIMATED GFR 79 mL/min (>60); GLUCOSE RANDOM 150 mg/dL (74-106); POTASSIUM,K 3.9 mmol/L (3.6-5.2); PROTEIN TOTAL,TP 7.2 g/dL (6.4-8.2); SODIUM,NA 140 mmol/L (140-148)
[2024-06-02] MEDS: Sodium Chloride 0.9% 80 ML IV SCH (15:28)
[2024-06-02] MEDS: Iopamidol 612 MG/ML 100 ML Bottle IV ONE (15:28)
== END 2024-06-02 16:44 ==
LOC: JP.ED 12:40
DX: L03.221 Cellulitis of neck (principal); I10 Essential (primary) hypertension; E11.9 Type 2 diabetes mellitus without complications; Z79.84 Long term (current) use of oral hypoglycemic drugs; Z79.899 Other long term (current) drug therapy
CPT/HCPCS: 36415; 70491; 80053; 85025; 87428; 87651; 99284; Q9967; 99285